=== PATIENT | male | born 1960 | race Caucasian/White ===

== ENCOUNTER 2016-12-14 18:09 | Inpatient (IN) | payer MEDICAID ==
[~2016-12-14] VITALS: Ht 180.3 cm; Wt 91.9 kg
[~2016-12-14 18:09] MED LIST: ASPI-110 PO; ATOR1TAB18 PO; CARV25TA PO; CLON0.1T PO; CLOP75TA PO; HYDR-3801 PO; HYDR25TA5 PO; LISI-515 PO; OMEP20CA2 PO
[2016-12-14 18:11] VITALS: BP 136/62; PULSE 88; RESP 24; TEMP 97.6; O2SAT 94
--- NOTE | 2016-12-14 18:50 | PD ---
Physical Exam Date Seen by Provider: Dec 14, 2016 Time Seen by Provider: 18:45 Narrative Patient seen in triage with 7-10 days of generalized weakness and dizziness. Patient states no fever, but has had chills. No Hx. Diabetes. Patient denies Chest pain, but gets winded with exertion, that improves with rest. Patient complains of "upset Stomach" but denies Vomiting or Diarrhea. Patient states he is thirsty, but no appetite. Seems to be sleeping more. Patient denies GONZALEZ or URI symptoms. BS was 107 Vital symptoms stable. Patient waiting for room assignment. Data Data Last Documented VS Vital Signs Date Time Temp Pulse Resp B/P Pulse Ox O2 Delivery O2 Flow Rate FiO2 12/14/16 18:11 97.6 88 24 136/62 94 Room Air [facility] Medical Record Reviewed: Yes Supervised Visit with CHUCKY: Yes Condition: Stable Man Avina Dec 14, 2016 18:49
--- NOTE | 2016-12-14 22:17 | PD ---
HPI Chief Complaint: Dizziness Time Seen by Provider: 22:16 Travel History International Travel<30 days: No Contact w/Intl Traveler<30days: No Traveled to known affect area: No History of Present Illness HPI 56-year-old male arrives complaining of dizziness for about 4 days. He reports the dizziness is lightheadedness in nature. He has had decreased appetite. His oral intake has been decreased however he is able tolerate water. He has occasional shortness of breath without modifying factor. No fever. Occasional subjective nausea reported. No vomiting. He arrives at the behest of his . PFSH Past Medical History Anxiety: No Depression: No Cancer: No Cardiac Catheterization: Yes Cardiovascular Problems: Yes High Cholesterol: Yes Diabetes: No Endocrine: No GERD: Yes Genitourinary: No Headaches: Yes Hepatitis: No Hiatal Hernia: No Hypertension: Yes Immune Disorder: No Musculoskeletal: No Neurologic: No Psychiatric: No Reproductive: No Respiratory: No Thyroid Disease: No Past Surgical History AICD: No Body Medical Devices: NONE Cardiac Surgery: Yes (CARDIAC CATH MAY 2015 left fem pop 2014, RIGHT FEM POP) Joint Replacement: No Oral Surgery: Yes (T & A AGE 16) Pacemaker: No Tonsillectomy: Yes Social History Alcohol Use: Yes (OCC) Tobacco Use: No Substance Use: No Allergies-Medications (Allergen,Severity, Reaction): Coded Allergies: No Known Allergies (Unverified , 12/14/16) Reported Meds & Prescriptions Reported Meds & Active Scripts Active Hydrochlorothiazide 25 Mg Tab 25 Mg PO DAILY 30 Days Reported Omeprazole 20 Mg Cap 20 Mg PO DAILY Aspirin 81 (Aspirin) 81 Mg Tabdr 81 Mg PO HS Carvedilol 25 Mg Tab 25 Mg PO BID Clonidine (Clonidine HCl) 0.1 Mg Tab 0.1 Mg PO BID Atorvastatin (Atorvastatin Calcium) 80 Mg Tab 80 Mg PO HS Lisinopril 20 Mg Tab 40 Mg PO DAILY Hydralazine (Hydralazine HCl) 100 Mg Tab 100 Mg PO TID Take with meals Review of Systems Except as stated in HPI: all other systems reviewed are Neg General / Constitutional: No: Fever Cardiovascular: No: Chest Pain or Discomfort, Diaphoresis Respiratory: No: Shortness of Breath Gastrointestinal: Positive: Nausea, No: Vomiting Physical Exam Narrative GENERAL: Pleasant 56-year-old male no acute distress speaking full sentences SKIN: Warm and dry. HEAD: Atraumatic. Normocephalic. EYES: Pupils equal and round. No scleral icterus. No injection or drainage. ENT: No nasal bleeding or discharge. Mucous membranes appear somewhat dry. NECK: Trachea midline. No JVD. CARDIOVASCULAR: Regular rate and rhythm. RESPIRATORY: No accessory muscle use. Clear to auscultation. Breath sounds equal bilaterally. GASTROINTESTINAL: Abdomen soft, non-tender, nondistended. Hepatic and splenic margins not palpable. MUSCULOSKELETAL: Extremities without clubbing, cyanosis, or edema. No obvious deformities. NEUROLOGICAL: Awake and alert. No obvious cranial nerve deficits. Motor grossly within normal limits. Five out of 5 muscle strength in the arms and legs. Normal speech. PSYCHIATRIC: Appropriate mood and affect; insight and judgment normal. Data Data Last Documented VS Vital Signs Date Time Temp Pulse Resp B/P Pulse Ox O2 Delivery O2 Flow Rate FiO2 12/15/16 00:00 75 18 109/56 93 Room Air 12/14/16 18:11 97.6 VS reviewed Orders Complete Blood Count With Diff (12/14/16 22:31) Basic Metabolic Panel (Bmp) (12/14/16 22:31) Urinalysis - C+S If Indicated (12/14/16 22:31) Electrocardiogram (12/14/16 ) Chest, Single Ap (12/14/16 ) Troponin I (12/14/16 23:09) Ecg Monitoring (12/14/16 23:09) Iv Access Insert/Monitor (12/14/16 23:09) Oximetry (12/14/16 23:09) Ondansetron Inj (Zofran Inj) (12/14/16 23:15) Sodium Chloride 0.9% Flush (Ns Flush) (12/14/16 23:15) Sodium Chlor 0.9% 1000 Ml Inj (Ns 1000 M (12/14/16 23:09) Orthostatic Vital Signs (12/14/16 23:09) Sodium Chlor 0.9% 1000 Ml Inj (Ns 1000 M (12/15/16 00:00) Admit Order (Ed Use Only) (12/15/16 01:03) Labs Laboratory Tests Test 12/14/16 22:40 White Blood Count 8.4 TH/MM3 Red Blood Count 3.50 MIL/MM3 Hemoglobin 10.7 GM/DL Hematocrit 31.3 % Mean Corpuscular Volume 89.3 FL Mean Corpuscular Hemoglobin 30.6 PG Mean Corpuscular Hemoglobin 34.2 % Concent Red Cell Distribution Width 13.9 % Platelet Count 188 TH/MM3 Mean Platelet Volume 10.8 FL Neutrophils (%) (Auto) 67.2 % Lymphocytes (%) (Auto) 22.5 % Monocytes (%) (Auto) 6.5 % Eosinophils (%) (Auto) 2.6 % Basophils (%) (Auto) 1.2 % Neutrophils # (Auto) 5.6 TH/MM3 Lymphocytes # (Auto) 1.9 TH/MM3 Monocytes # (Auto) 0.5 TH/MM3 Eosinophils # (Auto) 0.2 TH/MM3 Basophils # (Auto) 0.1 TH/MM3 CBC Comment DIFF FINAL Differential Comment Sodium Level 136 MEQ/L Potassium Level 5.0 MEQ/L Chloride Level 107 MEQ/L Carbon Dioxide Level 18.2 MEQ/L Anion Gap 11 MEQ/L Blood Urea Nitrogen 67 MG/DL Creatinine 3.35 MG/DL Estimat Glomerular Filtration 19 ML/MIN Rate Random Glucose 97 MG/DL Calcium Level 9.0 MG/DL Total Creatine Kinase 65 U/L Troponin I LESS THAN 0.02 NG/ML MDM Medical Decision Making Medical Screen Exam Complete: Yes Emergency Medical Condition: Yes Differential Diagnosis Anemia, electrolyte imbalance, renal failure, infection, polypharmacy Narrative Course CBC & BMP Diagram 12/14/16 22:40 Patient has new-onset renal failure with a GFR of 19. Admission for treatment and diagnosis of renal failure. Discussed with Dr. Chi Diagnosis Primary Impression: Acute renal failure Qualified Code: N17.9 - Acute renal failure, unspecified acute renal failure type Admitting Information Admitting Physician Requests: Admit Condition: Stable Jeff Jose MD Dec 14, 2016 22:17
[2016-12-14 22:20] VITALS: BP 131/83; PULSE 74; RESP 16; O2SAT 98
--- NOTE | 2016-12-14 22:53 | RADRPT ---
EXAM DATE/TIME: 12/14/2016 22:38 [facility] COMPARISON: CHEST SINGLE AP, November 11, 2014, 13:10. INDICATIONS : Short of breath MEDICAL HISTORY : Hypertension. SURGICAL HISTORY : None. ENCOUNTER: Initial ACUITY: 4 - 6 days PAIN SCORE: 0/10 LOCATION: Bilateral chest FINDINGS: A single view of the chest demonstrates the lungs to be symmetrically aerated without evidence of mas s, infiltrate or effusion. The cardiomediastinal contours are unremarkable. Osseous structures are intact. CONCLUSION: No acute disease. Caleb Murguia MD on December 14, 2016 at 22:52 Board Certified Radiologist. This report was verified electronically.
[2016-12-14 22:55] LABS: AUTOMATED NEUTROPHIL # 5.6 TH/MM3 (1.8-7.7); BASOPHIL # 0.1 TH/MM3 (0-0.2); BASOPHIL % 1.2 % (0.0-2.0); EOSINOPHIL # 0.2 TH/MM3 (0-0.4); EOSINOPHIL % 2.6 % (0.0-4.0); HEMATOCRIT 31.3 % (39.0-51.0); HEMO FLAGS DIFF FINAL; LYMPH % 22.5 % (9.0-44.0); LYMPHOCYTE # 1.9 TH/MM3 (1.0-4.8); MEAN CELL VOLUME 89.3 FL (80.0-100.0); MEAN CORPUSCULAR HEMOGLOBIN 30.6 PG (27.0-34.0); MEAN CORPUSCULAR HGB CONC 34.2 % (32.0-36.0); MONO % 6.5 % (0.0-8.0); NEUT % 67.2 % (16.0-70.0); PLATELET COUNT 188 TH/MM3 (150-450); RED CELL DISTRIBUTION WIDTH 13.9 % (11.6-17.2); WHITE BLOOD COUNT 8.4 TH/MM3 (4.0-11.0)
[2016-12-14] MEDS ORDERED: SODIUM CHLOR 0.9% 1000 ML INJ 1,000 ML IV ONE (23:09)
[2016-12-14 23:10] LABS: BICARBONATE 18.2 MEQ/L (21.0-32.0)
[2016-12-14] MEDS ORDERED: SODIUM CHLORIDE 0.9% FLUSH 10 ML FLUSH IVF PRN (23:15)
[2016-12-14] MEDS ORDERED: ONDANSETRON HCL 4 MG/2 ML VIAL IVP ONE (23:15)
[2016-12-15] VITALS: BP 109/56; PULSE 75; RESP 18; O2SAT 93
[2016-12-15] MEDS ORDERED: SODIUM CHLOR 0.9% 1000 ML INJ 1,000 ML IV ONE
[2016-12-15] MEDS ORDERED: NALOXONE HCL 0.4 MG/ML AMP IV PRN (01:15)
[2016-12-15] MEDS ORDERED: SODIUM CHLORIDE 0.9% FLUSH 10 ML FLUSH IV FLUSH PRN (01:15)
[2016-12-15 01:42] LABS: BLOOD, URINE NEG (NEG); COMMENT (UR) CULT NOT INDICATED; CULTURE IF INDICATED CULT NOT INDICATED; GLUCOSE,URINE NEG (NEG); HYALINE CAST, URINE 1 /lpf (RARE); KETONE, URINE NEG (NEG); MUCUS URINE FEW /lpf (OCC); NITRITE,URINE NEG (NEG); SQUAMOUS EPITHELIAL CELL URINE <1 /hpf (0-5); URINE COLOR YELLOW (YELLW/STRAW)
--- NOTE | 2016-12-15 03:42 | HHI.HP ---
HPI Service [facility] Primary Care Physician Rich Iglesias MD Admission Diagnosis CHAYA, Lightheadedness Diagnoses: Travel History International Travel<30 Days: No Contact w/Intl Traveler <30 Da: No Traveled to Known Affected Are: No History of Present Illness History from patient, ER physician communication, and review of medical records. Patient reported that he came to the hospital because he was having nausea, dizziness, loss of appetite for 4-5 days. Denies diarrhea. Denies fever.. However does feel warm most of the time. Denies vomiting. Denies any urinary burning or pain on urination or frequent urination. Denies flank pain. Denies any blood in stool or urine. He states that his dizziness is only when he stand up. However denies any associated chest pains or palpitations or focal weakness. Also denies any abdominal pain. No sick contacts. No new meds. Denies any prostate issues. Review of Systems Except as stated in HPI: all other systems reviewed are Neg Past Family Social History Past Medical History htn pvd chf heart murmur Past Surgical History tonsillectomy fem pop bypass bilateral - 1.5 yrs ago Allergies: Coded Allergies: No Known Allergies (Unverified , 12/14/16) Family History dad - heart problems mom- htn Social History smokes half a pack a day 30yrs twice a week 3-4 beers each time no drugs Physical Exam Vital Signs Vital Signs Date Time Temp Pulse Resp B/P Pulse Ox O2 Delivery O2 Flow Rate FiO2 12/15/16 00:00 75 18 109/56 93 Room Air 12/14/16 22:20 74 16 131/83 98 Room Air 12/14/16 18:11 97.6 88 24 136/62 94 Room Air Physical Exam GENERAL: This is a well-nourished, well-developed patient, in no apparent distress. SKIN: No rashes, ecchymoses or lesions. Cool and dry. Tactile fever HEAD: Atraumatic. Normocephalic. No temporal or scalp tenderness. EYES: No scleral icterus. No injection or drainage. ENT: Nose without bleeding, purulent drainage or septal hematoma. nontender, no meningeal signs. Congested nasal passages CARDIOVASCULAR: Regular rate and rhythm without murmurs, gallops, or rubs. RESPIRATORY: Clear to auscultation. Breath sounds equal bilaterally. No wheezes , rales, or rhonchi. GASTROINTESTINAL: Abdomen soft, non-tender, nondistended. No guarding. MUSCULOSKELETAL: Extremities without clubbing, cyanosis, or edema. . No calf tenderness. NEUROLOGICAL: Awake and alert. Motor and sensory grossly within normal limits. Normal speech Laboratory Laboratory Tests Test 12/14/16 12/15/16 22:40 01:29 White Blood Count 8.4 Red Blood Count 3.50 Hemoglobin 10.7 Hematocrit 31.3 Mean Corpuscular Volume 89.3 Mean Corpuscular Hemoglobin 30.6 Mean Corpuscular Hemoglobin 34.2 Concent Red Cell Distribution Width 13.9 Platelet Count 188 Mean Platelet Volume 10.8 Neutrophils (%) (Auto) 67.2 Lymphocytes (%) (Auto) 22.5 Monocytes (%) (Auto) 6.5 Eosinophils (%) (Auto) 2.6 Basophils (%) (Auto) 1.2 Neutrophils # (Auto) 5.6 Lymphocytes # (Auto) 1.9 Monocytes # (Auto) 0.5 Eosinophils # (Auto) 0.2 Basophils # (Auto) 0.1 CBC Comment DIFF FINAL Differential Comment Sodium Level 136 Potassium Level 5.0 Chloride Level 107 Carbon Dioxide Level 18.2 Anion Gap 11 Blood Urea Nitrogen 67 Creatinine 3.35 Estimat Glomerular Filtration 19 Rate Random Glucose 97 Calcium Level 9.0 Total Creatine Kinase 65 Troponin I LESS THAN 0.02 Urine Color YELLOW Urine Turbidity CLEAR Urine pH 5.0 Urine Specific [place] 1.011 Urine Protein TRACE Urine Glucose (UA) NEG Urine Ketones NEG Urine Occult Blood NEG Urine Nitrite NEG Urine Bilirubin NEG Urine Urobilinogen LESS THAN 2.0 Urine Leukocyte Esterase TRACE Urine RBC LESS THAN 1 Urine WBC 6 Urine Squamous Epithelial <1 Cells Urine Hyaline Casts 1 Urine Mucus FEW Microscopic Urinalysis Comment CULT NOT INDICATED Result Diagram: 12/14/16223912/14/16 224 Imaging Last [address] 12/15/16 0000 Signed Impressions: Service Date/Time: Thursday, December 15, 2016 04:47 - CONCLUSION: 1. No acute intracranial abnormality is identified. 2. There is complete opacification of the visualized portion of the right maxillary sinus. Rich Curtis MD Chest X-Ray 12/14/16 0000 Signed Impressions: Service Date/Time: November 22:38 - CONCLUSION: No acute disease. Caleb Murguia MD Assessment and Plan Problem List: (1) Acute renal failure ICD Code: N17.9 Status: Acute Assessment and Plan Impression: Possible acute viral illness. Acute renal failurelikely due to dehydration from poor oral intake. Subjective fevers Dizziness/likely orthostatic. Rule out intracranial etiologies. Plan: IV hydration. We'll repeat BMP and follow renal functions. We'll send for influenza test. Monitor for fever trends. If fever is observed, will send cultures. Check for orthostatic blood pressure and vital signs. CT of the brain. Resume home meds. However hold hydrochlorothiazide and lisinopril due to renal failure/dehydration. DVT prophylaxiswith heparin. Discussed Condition With Patient, ER physician, ER nurse Physician Certification 2 Midnight Certification Type: Admission for Inpatient Services Order for Inpatient Services The services are ordered in accordance with Medicare regulations or non- Medicare payer requirements, as applicable. In the case of services not specified as inpatient-only, they are appropriately provided as inpatient services in accordance with the 2-midnight benchmark. Estimated LOS (days): 2 days is the estimated time the patient will need to remain in the hospital, assuming treatment plan goals are met and no additional complications. Post-Hospital Plan: Home Bel Chi MD Dec 15, 2016 03:42
--- NOTE | 2016-12-15 05:08 | RADRPT ---
EXAM DATE/TIME: 12/15/2016 04:47 [facility] COMPARISON: No previous studies available for comparison. INDICATIONS : Dizziness RADIATION DOSE: 56.35 CTDIvol (mGy) MEDICAL HISTORY : Cardiovascular disease. Hypertension. SURGICAL HISTORY : Tonsillectomy. Coronary artery stent. ENCOUNTER: Initial ACUITY: 2 days PAIN SCALE: 2/10 LOCATION: cranial TECHNIQUE: Multiple contiguous axial images were obtained of the head. Using automated exposure control and adj ustment of the mA and/or kV according to patient size, radiation dose was kept as low as reasonably a chievable to obtain optimal diagnostic quality images. FINDINGS: CEREBRUM: There is mild cerebral atrophy. Ventricles are normal in size. No evidence of midline shift, mass le rosita, hemorrhage or acute infarction. No extra-axial fluid collections are seen. POSTERIOR FOSSA: The cerebellum and brainstem demonstrate no acute finding. The 4th ventricle is midline. The cerebe llopontine angle is unremarkable. EXTRACRANIAL: There is complete opacification of the visualized right maxillary sinus. SKULL: The calvaria is intact. No evidence of skull fracture. CONCLUSION: 1. No acute intracranial abnormality is identified. 2. There is complete opacification of the visualized portion of the right maxillary sinus. Rich Curtis MD on December 15, 2016 at 5:04 Board Certified Radiologist. This report was verified electronically.
[2016-12-15 05:19] LABS: BASOPHIL % 0.9 % (0.0-2.0); EOSINOPHIL # 0.2 TH/MM3 (0-0.4); EOSINOPHIL % 3.7 % (0.0-4.0); HEMATOCRIT 25.6 % (39.0-51.0); HEMO FLAGS DIFF FINAL; LYMPH % 28.9 % (9.0-44.0); LYMPHOCYTE # 1.5 TH/MM3 (1.0-4.8); MEAN CELL VOLUME 89.6 FL (80.0-100.0); MEAN CORPUSCULAR HEMOGLOBIN 30.5 PG (27.0-34.0); MEAN CORPUSCULAR HGB CONC 34.1 % (32.0-36.0); MONO % 7.8 % (0.0-8.0); NEUT % 58.7 % (16.0-70.0); PLATELET COUNT 142 TH/MM3 (150-450); RED BLOOD COUNT 2.85 MIL/MM3 (4.50-5.90); RED CELL DISTRIBUTION WIDTH 14.1 % (11.6-17.2); WHITE BLOOD COUNT 5.1 TH/MM3 (4.0-11.0)
[2016-12-15 05:38] LABS: BICARBONATE 19.3 MEQ/L (21.0-32.0); POTASSIUM 4.9 MEQ/L (3.5-5.1)
[2016-12-15] MEDS: HEPARIN SODIUM - SQ 10,000 UNITS/ML VIAL SQ SCH ×3 (06:51→22:08)
[2016-12-15] MEDS: cloNIDine HCL 0.1 MG TAB PO SCH ×2 (09:00→21:00)
[2016-12-15] MEDS: hydrALAZINE HCL 100 MG TAB PO SCH ×3 (09:00→18:00)
[2016-12-15] MEDS: SODIUM CHLORIDE 0.9% FLUSH 10 ML FLUSH IV FLUSH SCH ×2 (09:00→21:00)
[2016-12-15 11:39] VITALS: BP 104/53; PULSE 83; RESP 18; TEMP 97.6; O2SAT 95
[2016-12-15] MEDS: DEXT 5%-NACL 0.45% 1000 ML INJ 1,000 ML IV SCH (12:00)
[2016-12-15] MEDS: PANTOPRAZOLE SOD 20 MG DELAYED RELEASE TAB PO SCH (12:01)
[2016-12-15] MEDS: CARVEDILOL 12.5 MG TAB PO SCH ×2 (12:01→21:00)
[2016-12-15 13:09] LABS: FERRITIN 146 NG/ML (26-388); TRANSFERRIN IRON PROFILE 191 MG/DL (200-360)
[2016-12-15 14:47] VITALS: BP 139/67
[2016-12-15 15:43] VITALS: BP_SYST 113; BP_SYST 127; BP_DIAS 55; BP_DIAS 62; PULSE 72; RESP 18; TEMP 97.8; O2SAT 95
[2016-12-15] MEDS ORDERED: LORazepam 1 MG TAB PO PRN (16:00)
--- NOTE | 2016-12-15 16:05 | HHI.PR ---
Addendum to Inpatient Note Addendum Reason: Additional Documentation Additional Information The pt said he was eating well and was interested in going home. No longer nauseous or dizzy. He requested a nicotine patch. Discussed with nursing. Will order nicotine patch and Ativan as needed. Continue fluids. Will give B12 IM x 1. Check Hemoccult. Follow BMP. Add Augmentin for sinus disease noted on CT. PT Josh Pike DO Dec 15, 2016 16:05
[2016-12-15] MEDS ORDERED: CYANOCOBALAMIN 1000 MCG/ML VIAL IM ONE (16:15)
[2016-12-15] MEDS: NICOTINE 14 MG/24 HR PATCH T-DERMAL SCH (16:51)
--- NOTE | 2016-12-15 17:06 | EKG ---
Date Performed: 12/14/2016 Time Performed: 22:41:50 PTAGE: 56 years EKG: There is evidence of a Sinus rhythm with delta waves suggestive of Izhwn-Hyxubblbm-Kwspz syndrome, most likely wpw type A Clinical corre lation is recommended Compared to PREVIOUS TRACING , no significant change ABNORMAL ECG INTERPRETATION BASED ON A DEFAULT A GE OF 40 YEARS PREVIOUS TRACIN07/25/2016 07.41 DOCTOR: Jcarlos Garcia Interpretating Date/Time 12/15/2016 17:06:15
[2016-12-15 19:15] VITALS: BP 104/58; PULSE 71; RESP 18; TEMP 97.8; O2SAT 95
[2016-12-15] MEDS ORDERED: ASPIRIN EC 81 MG TABEC PO SCH (21:00)
[2016-12-15] MEDS ORDERED: ATORVASTATIN 80 MG TAB PO SCH (21:00)
[2016-12-15] MEDS: AMOXICILLIN/CLAVULANATE K 875 MG TAB PO SCH (22:05)
[2016-12-16 00:43] VITALS: BP 120/60; PULSE 70; RESP 19; TEMP 97.6; O2SAT 100
[2016-12-16 05:15] VITALS: BP 115/55; PULSE 70; RESP 18; TEMP 97.9; O2SAT 100
[2016-12-16] MEDS: HEPARIN SODIUM - SQ 10,000 UNITS/ML VIAL SQ SCH (06:24)
[2016-12-16] MEDS: DEXT 5%-NACL 0.45% 1000 ML INJ 1,000 ML IV SCH (06:26)
[2016-12-16 08:01] VITALS: BP 129/67; PULSE 75; RESP 18; TEMP 98.2; O2SAT 95
[2016-12-16] MEDS ORDERED: THIAMINE HCL 100 MG TAB PO SCH (09:00)
[2016-12-16] MEDS ORDERED: MULTIVITAMIN TAB PO SCH (09:00)
[2016-12-16] MEDS: cloNIDine HCL 0.1 MG TAB PO SCH (09:00)
[2016-12-16] MEDS: hydrALAZINE HCL 100 MG TAB PO SCH (09:00)
[2016-12-16] MEDS: CARVEDILOL 12.5 MG TAB PO SCH (09:22)
[2016-12-16] MEDS: NICOTINE 14 MG/24 HR PATCH T-DERMAL SCH (09:22)
[2016-12-16] MEDS: PANTOPRAZOLE SOD 20 MG DELAYED RELEASE TAB PO SCH (09:22)
[2016-12-16] MEDS: AMOXICILLIN/CLAVULANATE K 875 MG TAB PO SCH (09:22)
[2016-12-16 09:23] LABS: HEMATOCRIT 27.9 % (39.0-51.0); MEAN CELL VOLUME 90.5 FL (80.0-100.0); MEAN CORPUSCULAR HEMOGLOBIN 29.7 PG (27.0-34.0); MEAN CORPUSCULAR HGB CONC 32.9 % (32.0-36.0); PLATELET COUNT 153 TH/MM3 (150-450); RED BLOOD COUNT 3.08 MIL/MM3 (4.50-5.90); RED CELL DISTRIBUTION WIDTH 13.7 % (11.6-17.2); REVIEW FLAG FINAL
[2016-12-16] MEDS: SODIUM CHLORIDE 0.9% FLUSH 10 ML FLUSH IV FLUSH SCH (09:23)
[2016-12-16 11:37] LABS: BICARBONATE 21.4 MEQ/L (21.0-32.0); MAGNESIUM 1.8 MG/DL (1.5-2.5); POTASSIUM 4.8 MEQ/L (3.5-5.1)
[2016-12-16] MEDS ORDERED: NICO14DI T-DERMAL (12:05)
[2016-12-16] MEDS ORDERED: AMOX875T2 PO (12:05)
--- NOTE | 2016-12-16 12:07 | HHI.DCPOC ---
Discharge Care Plan Diagnosis: (1) Acute renal failure (2) Tobacco abuse (3) Sinus infection Goals to Promote Your Health * To prevent worsening of your condition and complications * To maintain your health at the optimal level Directions to Meet Your Goals Take your medications as prescribed Follow your dietary instruction Follow activity as directed Keep your appointments as scheduled Take your immunizations and boosters as scheduled If your symptoms worsen call your PCP, if no PCP go to Urgent Care Center or Emergency Room Smoking is Dangerous to Your Health. Avoid second hand smoke Call the 24-hour hour crisis hotline for domestic abuse at Josh Baker DO Dec 16, 2016 12:07
--- NOTE | 2016-12-16 12:17 | HHI.PR ---
Subjective Remarks The patient was feeling well and wanted to go home. He is tolerating a diet. He said he did not want to spend another day in the hospital getting hydrated. He said he has never gotten a colonoscopy before. He had questions about his blood pressure medications as his blood pressure has been normal without most of them. He agrees to follow up with his primary care doctor and to possibly get a colonoscopy scheduled. Objective Vitals Vital Signs Date Time Temp Pulse Resp B/P Pulse Ox O2 Delivery O2 Flow Rate FiO2 12/16/16 08:01 98.2 75 18 129/67 95 12/16/16 05:15 97.9 70 18 115/55 100 12/16/16 00:43 97.6 70 19 120/60 100 12/15/16 19:15 97.8 71 18 104/58 95 12/15/16 15:43 97.8 72 18 127/62 95 119/59 113/55 I/O 12/15/16 12/15/16 12/15/16 12/16/16 12/16/16 12/16/16 07:00 15:00 23:00 07:00 15:00 23:00 Intake Total 120 ml Balance 120 ml Intake Oral 120 ml Result Diagram: 12/16/16 0753 12/16/16 0753 Imaging Last Impressions Head CT 12/15/16 0000 Signed Impressions: Service Date/Time: Thursday, December 15, 2016 04:47 - CONCLUSION: 1. No acute intracranial abnormality is identified. 2. There is complete opacification of the visualized portion of the right maxillary sinus. Rich Curtis MD Chest X-Ray 12/14/16 0000 Signed Impressions: Service Date/Time: November 22:38 - CONCLUSION: No acute disease. Caleb Murguia MD Objective Remarks GENERAL: This is a well-nourished, well-developed patient, in no apparent distress. SKIN: No rashes, ecchymoses or lesions. Cool and dry. HEAD: Atraumatic. Normocephalic. No temporal or scalp tenderness. EYES: No scleral icterus. No injection or drainage. ENT: Nose without bleeding, purulent drainage or septal hematoma. nontender, no meningeal signs. Congested nasal passages CARDIOVASCULAR: Regular rate and rhythm without murmurs, gallops, or rubs. RESPIRATORY: Clear to auscultation. Breath sounds equal bilaterally. No wheezes , rales, or rhonchi. GASTROINTESTINAL: Abdomen soft, non-tender, nondistended. No guarding. MUSCULOSKELETAL: Extremities without clubbing, cyanosis, or edema. . No calf tenderness. NEUROLOGICAL: Awake and alert. Motor and sensory grossly within normal limits. Normal speech. PSYCH: Mood and affect appropriate. Medications and IVs Current Medications Medications (Trade) Dose Ordered Sig/Jose Route Start Time Stop Time Status Last Admin (NS Flush) 2 ml UNSCH PRN IV FLUSH 12/15/16 01:15 (NS Flush) 2 ml BID IV FLUSH 12/15/16 09:00 12/16/16 09:23 (Heparin Inj) 5,000 units Q8H SQ 12/15/16 06:00 12/16/16 06:24 (Narcan Inj) 0.4 mg UNSCH PRN IV 12/15/16 01:15 (Ecotrin Ec) 81 mg HS PO 12/15/16 21:00 12/15/16 22:07 (Lipitor) 80 mg HS PO 12/15/16 21:00 12/15/16 22:07 (Coreg) 25 mg BID PO 12/15/16 09:00 12/16/16 09:22 (Catapres) 0.1 mg BID PO 12/15/16 09:00 (Apresoline) 100 mg TID PO 12/15/16 09:00 Pantoprazole Sodium 20 mg 20 mg DAILY PO 12/15/16 09:00 12/16/16 09:22 (D5W-1/2 NS 1000 ml Inj) 1,000 ml @ 75 mls/hr [id number] IV 12/15/16 10:30 12/16/16 13:09 12/16/16 06:26 (Habitrol 14 Mg Patch.24 Hr) 1 patch DAILY T-DERMAL 12/15/16 17:00 12/16/16 09:22 Miscellaneous Information 1 DAILY T-DERMAL 12/16/16 17:00 (Ativan) 1 mg Q8H PRN PO 12/15/16 16:00 (Vitamin B1) 100 mg DAILY PO 12/16/16 09:00 12/16/16 09:22 (Theragran) 1 tab DAILY PO 12/16/16 09:00 12/16/16 09:22 (Augmentin) 875 mg Q12HR PO 12/15/16 21:00 12/16/16 09:22 A/P Problem List: (1) Acute renal failure ICD Code: N17.9 Status: Acute Assessment and Plan Possible acute viral illness. Acute renal failurelikely due to dehydration from poor oral intake. Subjective fevers Dizziness Sinus infection Anemia Smoking Plan: IV hydration. Encourage PO intake upon discharge. We'll repeat BMP and follow renal functions. Improved. Will need a repeat BMP in 3-5 days. Not found to be orthostatic. CT of the brain with sinus disease. Resume home meds. However hold hydrochlorothiazide and lisinopril due to renal failure/dehydration. Also hold clonidine and hydralazine as blood pressure has been well controlled. Continue Coreg. Follow up with PCP. The pt will have a CBC checked in 3-5 days. He will follow up with his PCP. A colonoscopy is recommended. He received a shot of vitamin B12 as his levels were borderline low. Hemoglobin has been stable. Nicotine patch and cessation instruction given. DVT prophylaxiswith heparin. Discharge Planning D/c home. Problem Qualifiers (1) Acute renal failure: Qualified Code: N17.9 - Acute renal failure, unspecified acute renal failure type Josh Baker DO Dec 16, 2016 12:17
[2016-12-16 12:24] VITALS: BP 100/59; PULSE 75; RESP 18; TEMP 98.8; O2SAT 94
[2016-12-16] MEDS ORDERED: REMOVE OLD PATCH T-DERMAL SCH (17:00)
== END 2016-12-16 12:58 | disposition home or self-care (01) | DRG 684 ==
LOC: NEPE 18:09 → NEDA 12-15 01:05 → NEDH 12-15 05:05 → NEPGCP 12-15 10:13 → N04A 12-15 23:58
PROVIDERS: ADMIT Hospitalist; ATTEND Hospitalist
DX: N17.9 Acute kidney failure, unspecified (principal); I10 Essential (primary) hypertension; E86.0 Dehydration; I73.9 Peripheral vascular disease, unspecified; F17.210 Nicotine dependence, cigarettes, uncomplicated; R01.1 Cardiac murmur, unspecified; R42 Dizziness and giddiness; J32.9 Chronic sinusitis, unspecified; D64.9 Anemia, unspecified; Z79.82 Long term (current) use of aspirin
CPT/HCPCS: 70450; 71010; 80048; 81001; 82550; 82607; 82728; 82746; 83540; 83550; 83735; 84484; 85025; 85027; 93005; 96374; J1644; J2405; J3420; J7030

== ENCOUNTER 2017-04-15 13:05 | Emergency (ER) | payer MEDICAID ==
[~2017-04-15] VITALS: Ht 180.3 cm; Wt 95.0 kg
[~2017-04-15 13:05] MED LIST changes: +AMOX875T2 PO; -CLON0.1T PO; -CLOP75TA PO; -HYDR-3801 PO; -HYDR25TA5 PO; -LISI-515 PO; +NICO14DI T-DERMAL
[2017-04-15 13:07] VITALS: BP 148/72; PULSE 76; RESP 20; TEMP 97.7; O2SAT 96
[2017-04-15] MEDS ORDERED: LISI40TA PO (13:18)
[2017-04-15] MEDS ORDERED: HYDR-3799 PO (13:18)
[2017-04-15] MEDS ORDERED: NORV2.5T PO (13:18)
[2017-04-15] MEDS ORDERED: KETOROLAC TROMETHAMINE 60 MG/2 ML (IM) VIAL IM ONE (14:30)
[2017-04-15 15:39] LABS: BLOOD, URINE NEG (NEG); GLUCOSE,URINE NEG (NEG); KETONE, URINE NEG (NEG); MUCUS URINE FEW /lpf (OCC); NITRITE,URINE NEG (NEG); SQUAMOUS EPITHELIAL CELL URINE <1 /hpf (0-5); URINE COLOR YELLOW (YELLW/STRAW)
[2017-04-15 15:40] LABS: COMMENT (UR) CULT NOT INDICATED; CULTURE IF INDICATED CULT NOT INDICATED
--- NOTE | 2017-04-15 15:42 | PD ---
HPI Chief Complaint: Musculoskeletal Complaint Time Seen by Provider: 13:10 Travel History International Travel<30 days: No Contact w/Intl Traveler<30days: No Traveled to known affect area: No History of Present Illness HPI 56-year-old male with chief complaint of left low back pain 2 days. Patient reports the pain began after he stood up from a sitting position. It has progressively worsened over the last 2 days. He denies fever, chills, nausea, vomiting, abdominal pain, dysuria. He denies incontinence, saddle anesthesia, numbness/weakness as tingling in the extremities. Symptom severity moderate. Duration 2 days. Aggravating factors are movement. Alleviating factors rest. PFSH Past Medical History Arthritis: No Asthma: No Blood Disorders: No Anxiety: No Depression: No Heart Rhythm Problems: No Cancer: No Cardiac Catheterization: Yes Cardiovascular Problems: Yes ("WEAK HEART") High Cholesterol: No Chest Pain: No Congestive Heart Failure: No COPD: No Cerebrovascular Accident: No Diabetes: No Endocrine: No Gastrointestinal Disorders: Yes GERD: Yes Genitourinary: No Headaches: Yes Hepatitis: No Hiatal Hernia: No Hypertension: Yes Immune Disorder: No Implanted Vascular Access Dvce: No Kidney Stones: No Medical other: No Musculoskeletal: No Neurologic: Yes Psychiatric: No Reproductive: No Respiratory: No Migraines: No Renal Failure: No Seizures: No Sleep Apnea: No Thyroid Disease: No Past Surgical History Abdominal Surgery: No AICD: No Body Medical Devices: NONE Cardiac Surgery: Yes (CARDIAC CATH MAY 2015 left fem pop 2014, RIGHT FEM POP) Ear Surgery: No Endocrine Surgery: No Eye Surgery: No Genitourinary Surgery: No Gynecologic Surgery: No Joint Replacement: No Neurologic Surgery: No Oral Surgery: Yes (T & A AGE 16) Pacemaker: No Thoracic Surgery: No Tonsillectomy: Yes Other Surgery: Yes Social History Alcohol Use: Yes (OCC) Tobacco Use: Yes Substance Use: No Allergies-Medications (Allergen,Severity, Reaction): Coded Allergies: No Known Allergies (Unverified , 12/14/16) Reported Meds & Prescriptions Reported Meds & Active Scripts Active Nicotine Patch (Nicotine) 14 Mg/24 Hr Patch 1 Patch T-DERMAL DAILY Reported Norvasc (Amlodipine Besylate) 2.5 Mg Tab 2.5 Mg PO DAILY Hydralazine HCl 25 Mg Tablet 100 Mg PO BID Lisinopril 40 Mg Tab 40 Mg PO DAILY Omeprazole 20 Mg Cap 20 Mg PO DAILY Aspirin 81 (Aspirin) 81 Mg Tabdr 81 Mg PO HS Carvedilol 25 Mg Tab 25 Mg PO BID Atorvastatin (Atorvastatin Calcium) 80 Mg Tab 80 Mg PO HS Review of Systems Except as stated in HPI: all other systems reviewed are Neg General / Constitutional: No: Fever Eyes: No: Visual changes HENT: No: Headaches Cardiovascular: No: Chest Pain or Discomfort Respiratory: No: Shortness of Breath Gastrointestinal: No: Abdominal Pain Genitourinary: No: Dysuria Skin: No Rash Neurologic: No: Weakness Physical Exam Narrative GENERAL: [Alert, well-appearing male, mild distress with movement secondary to pain] SKIN: Focused skin assessment warm/dry. HEAD: Atraumatic. Normocephalic. EYES: Pupils equal and round. No scleral icterus. No injection or drainage. ENT: No nasal bleeding or discharge. Mucous membranes pink and moist. NECK: Trachea midline. No JVD. CARDIOVASCULAR: Regular rate and rhythm. No murmur appreciated. RESPIRATORY: No accessory muscle use. Clear to auscultation. Breath sounds equal bilaterally. GASTROINTESTINAL: Abdomen soft, non-tender, nondistended. Hepatic and splenic margins not palpable. MUSCULOSKELETAL: No obvious deformities. No clubbing. No cyanosis. No edema. BACK: + TTP left paraspinous muscle of thoracic and lumbar spine. No rash. No point tenderness on palpation of the spine. NEUROLOGICAL: Awake and alert. No obvious cranial nerve deficits. Motor grossly within normal limits. Normal speech. PSYCHIATRIC: Appropriate mood and affect; insight and judgment normal. Data Data Last Documented VS Vital Signs Date Time Temp Pulse Resp B/P Pulse Ox O2 Delivery O2 Flow Rate FiO2 04/15/17 13:07 97.7 76 20 148/72 96 Room Air Orders Urinalysis - C+S If Indicated (04/15/17 13:30) Ketorolac Inj (Toradol Inj) (04/15/17 14:30) Labs Laboratory Tests Test 04/15/17 14:22 Urine Color YELLOW Urine Turbidity CLEAR Urine pH 6.0 Urine Specific [place] 1.014 Urine Protein NEG mg/dL Urine Glucose (UA) NEG mg/dL Urine Ketones NEG mg/dL Urine Occult Blood NEG Urine Nitrite NEG Urine Bilirubin NEG Urine Urobilinogen LESS THAN 2.0 MG/DL Urine Leukocyte Esterase TRACE Urine RBC 1 /hpf Urine WBC 4 /hpf Urine Squamous Epithelial <1 /hpf Cells Urine Mucus FEW /lpf Microscopic Urinalysis Comment CULT NOT INDICATED MDM Medical Decision Making Medical Screen Exam Complete: Yes Emergency Medical Condition: Yes Differential Diagnosis Lumbar strain, pyelonephritis, UTI, nephrolithiasis Narrative Course 56-year-old [id number] male with chief complaint of left low back pain 2 days. Patient reports he injured the back while standing up from a seated position. Due to the region of the pain was ordered. He had no signs of infection or RBCs to indicate renal stone. Patient had symptom improvement after Toradol. He will be discharged home with diagnosis of lumbar strain. Instructed to follow-up with primary care doctor. Return precautions discussed. Patient verbalizes understanding and agrees to plan. Diagnosis Primary Impression: Lumbar strain Qualified Code: S39.012A - Lumbar strain, initial encounter Referrals: Primary Care Physician Additional Instructions: Take pain medication as described. Avoid heavy lifting or strenuous activity. Follow-up with her primary care doctor. Return to the emergency department if he developed new or worsening symptoms. Scripts Methocarbamol (Robaxin)500 Mg [id number] Mg PO TID PRN (MUSCLE SPASM) #12 TAB Prov:Maura Iqbal 04/15/17 Disposition: 01 DISCHARGE HOME Condition: Stable Maura Iqbal Apr 15, 2017 15:42
[2017-04-15] MEDS ORDERED: IBUP800T23 PO (15:47)
[2017-04-15] MEDS ORDERED: ROBA500T PO (15:47)
== END 2017-04-15 15:53 | disposition home or self-care (01) ==
LOC: NEPD 13:05
DX: S39.012A Strain of muscle, fascia and tendon of lower back, initial encounter (principal); X50.9XXA Other and unspecified overexertion or strenuous movements or postures, initial encounter
CPT/HCPCS: 81001; 96372; 99284; J1885